=== PATIENT | female | born 1935 | race Caucasian/White ===

== ENCOUNTER 2017-10-23 19:21 | Inpatient (IN) | payer OTHER ==
[~2017-10-23] VITALS: Ht 160 cm; Wt 64.2 kg
[2017-10-23 21:17] LABS: BASOPHIL (%) 0.5 % (0-1); BASOPHIL COUNT 0.1 K/uL (0-0.1); EOSINOPHIL (%) 0.5 % (0-5); EOSINOPHIL COUNT 0.1 K/uL (0-0.3); HEMATOCRIT 36.9 % (36.0-46.0); HEMOGLOBIN 12.6 G/DL (11.9-15.5); IMMATURE GRANULOCYTE (%) 0.5 % (0.0-0.7); LYMPHOCYTE (%) 19.2 % (15-42); LYMPHOCYTE COUNT 1.8 K/uL (1.0-2.8); MCH 28.3 PG (29.0-34.0); MCHC 34.1 G/DL (30.0-36.0); MCV 82.7 FL (83-99); MONOCYTE (%) 9.2 % (3-12); MONOCYTE COUNT 0.9 K/uL (0-0.8); NEUTROPHIL (%) 70.1 % (45-76); NEUTROPHIL COUNT 6.6 K/uL (1.8-6.4); PLATELET COUNT 344 K/uL (156-360); RBC DIS.WIDTH-CV 13.3 % (11.8-14.6); RBC DIS.WIDTH-SD 40.2 % (39-53); RED BLOOD COUNT 4.46 M/uL (3.80-5.20); WHITE BLOOD COUNT 9.5 K/uL (4.1-10.2)
[2017-10-23 21:28] LABS: ALBUMIN 4.1 g/dL (3.2-4.8); CHLORIDE 97 mEq/L (99-109); MAGNESIUM 2.1 mg/dL (1.3-2.7); POTASSIUM 3.5 mEq/L (3.7-5.4); SODIUM 130 mEq/L (136-147)
[2017-10-23 21:30] LABS: GLUCOSE 128 mg/dL (70-99); TOTAL PROTEIN 6.9 g/dL (6.4-8.3)
[2017-10-23 21:32] LABS: TOTAL BILIRUBIN 0.5 mg/dL (0.0-1.0)
[2017-10-23 21:34] LABS: ALKALINE PHOSPHATASE 152 IU/L (3-129)
[2017-10-23 21:35] LABS: AST (GOT) 23 IU/L (2-34); GFR ESTIMATE (CALCULATED) 57 mL/min/
[2017-10-23 21:36] LABS: UREA NITROGEN (BUN) 9 mg/dL (9-23)
[2017-10-23 21:37] LABS: SALICYLATE < 5.0 MG/DL (15-30)
[2017-10-23 21:38] LABS: ACETAMINOPHEN (TYLENOL) < 10 mcg/mL (10-30); ALT (GPT) 14 IU/L (3-49); TROP-I INTERPRETATION NEGATIVE; TROPONIN-I < 0.01 ng/mL (0.0-0.30)
[2017-10-23 23:42] LABS: APPEARANCE SL.HAZY ((CLEAR)); BILIRUBIN NEGATIVE; BLOOD SMALL; COLOR YELLOW ((YELLOW)); GLUCOSE (STRIP) NEGATIVE; KETONES NEGATIVE; LEUKOCYTES MODERATE; NITRITE POSITIVE; PROTEIN (STRIP) NEGATIVE; SPECIFIC GRAVITY 1.008 (1.000-1.030)
[2017-10-23] MEDS ORDERED: RISPERDAL1 MG PO (23:44)
[2017-10-23] MEDS ORDERED: TRAZODONE HCL50 MG PO (23:45)
[2017-10-23] MEDS ORDERED: ZANTAC300 MG PO (23:49)
[2017-10-24 00:40] LABS: BACTERIA 1+ /HPF; EPITHELIAL CELLS RARE /HPF; MUCUS TRACE /LPF; RED BLOOD CELLS 0-5 /HPF (0-5); UCUL ADDED? YES; WHITE BLOOD CELLS 30-40 /HPF (0-5)
[2017-10-24 00:44] LABS: AMPHETAMINE NEGATIVE (500 ng/mL); BARBITURATES NEGATIVE (200 ng/mL); BENZODIAZEPINES NEGATIVE (150 ng/mL); BUPRENORPHINE NEGATIVE (10 ng/mL); COCAINE NEGATIVE (150 ng/mL); METHADONE NEGATIVE (200 ng/mL); METHAMPHETAMINE NEGATIVE (500 ng/mL); OPIATES (MORPHINE) NEGATIVE (100 ng/mL); OXYCODONE NEGATIVE (100 ng/mL); PHENCYCLIDINE NEGATIVE (25 ng/mL); PROPOXYPHENE NEGATIVE (300 ng/mL); THC CANNABINOIDS NEGATIVE (50 ng/mL); TRICYCLIC ANTIDEPRESSANTS NEGATIVE (300 ng/mL)
[2017-10-24 03:42] VITALS: BP 144/91
[2017-10-24 08:23] VITALS: BP 123/70
[2017-10-24 15:33] VITALS: BP 135/76
[2017-10-25 08:07] VITALS: BP 162/70
[2017-10-25 15:44] VITALS: BP 162/104
[2017-10-25 22:10] VITALS: BP 169/76
[2017-10-26 09:04] VITALS: BP 166/84
[2017-10-26 15:36] VITALS: BP 183/81
[2017-10-27 08:04] VITALS: BP 141/89
[2017-10-27 16:15] VITALS: BP 103/52
[2017-10-28 08:07] VITALS: BP 161/87
[2017-10-28 11:36] VITALS: BP 128/58
[2017-10-28 15:41] VITALS: BP 133/73
[2017-10-29 07:53] VITALS: BP 118/56
[2017-10-29 15:37] VITALS: BP 131/62
[2017-10-30 07:58] VITALS: BP 142/76
[2017-10-30] MEDS ORDERED: VENTOLIN HFA18 GM IH (09:28)
[2017-10-30] MEDS ORDERED: TRAZODONE HCL50 MG PO (09:28)
[2017-10-30] MEDS ORDERED: LISINOPRIL5 MG PO (09:28)
[2017-10-30] MEDS ORDERED: RISPERDAL1 MG PO (09:28)
== END 2017-10-30 15:16 | disposition home or self-care (01) | DRG 885 ==
LOC: EME 19:21 → 1WEST 23:47 → EDOF 23:47 → ENRESERV 10-24 02:54 → 1WEST 10-24 03:32
PROVIDERS: Emergency Medicine
DX: F25.9 Schizoaffective disorder, unspecified (principal); N39.0 Urinary tract infection, site not specified; R45.851 Suicidal ideations; F05 Delirium due to known physiological condition; F31.9 Bipolar disorder, unspecified; F02.80 Dementia in other diseases classified elsewhere, unspecified severity, without behavioral disturbance, psychotic disturbance, mood disturbance, and anxiety; K59.00 Constipation, unspecified; Z60.2 Problems related to living alone; L30.9 Dermatitis, unspecified; B96.20 Unspecified Escherichia coli [E. coli] as the cause of diseases classified elsewhere; G47.00 Insomnia, unspecified; J43.9 Emphysema, unspecified; F41.9 Anxiety disorder, unspecified; F22 Delusional disorders; I10 Essential (primary) hypertension; Z91.14 Patient's other noncompliance with medication regimen; Z87.891 Personal history of nicotine dependence; Z88.5 Allergy status to narcotic agent; Z79.51 Long term (current) use of inhaled steroids; Z91.5 Personal history of self-harm
CPT/HCPCS: 71045; 80053; 81003; 83735; 84484; 85025; 87077; 87086; 87186; 90837; 93005; 94640; 94640 76; 97150 GO; 99202; 99281; 99285; G0480

== ENCOUNTER 2017-12-13 10:43 | Emergency (ER) | payer OTHER ==
[~2017-12-13] VITALS: Ht 162.6 cm; Wt 59.4 kg
[~2017-12-13 10:43] MED LIST: LISINOPRIL5 MG PO; RISPERDAL1 MG PO; TRAZODONE HCL50 MG PO; VENTOLIN HFA18 GM IH; ZANTAC300 MG PO
[2017-12-13 10:49] VITALS: BP 139/80
== END 2017-12-13 11:50 | disposition left against medical advice (07) ==
LOC: EXP 10:43 → EME 10:43 → EXP 11:50
DX: M79.602 Pain in left arm (principal); M25.532 Pain in left wrist; Z53.21 Procedure and treatment not carried out due to patient leaving prior to being seen by health care provider
CPT/HCPCS: 73080; 73110

== ENCOUNTER 2018-01-07 17:00 | Emergency (ER) | payer OTHER ==
[~2018-01-07] VITALS: Ht 160 cm; Wt 63.0 kg
[2018-01-07 17:36] LABS: BASOPHIL (%) 0.9 % (0-1); BASOPHIL COUNT 0.1 K/uL (0-0.1); EOSINOPHIL (%) 2.4 % (0-5); EOSINOPHIL COUNT 0.2 K/uL (0-0.3); HEMATOCRIT 35.9 % (36.0-46.0); HEMOGLOBIN 11.8 G/DL (11.9-15.5); IMMATURE GRANULOCYTE (%) 0.5 % (0.0-0.7); LYMPHOCYTE (%) 29.7 % (15-42); LYMPHOCYTE COUNT 2.4 K/uL (1.0-2.8); MCHC 32.9 G/DL (30.0-36.0); MCV 85.3 FL (83-99); MONOCYTE (%) 9.6 % (3-12); MONOCYTE COUNT 0.8 K/uL (0-0.8); NEUTROPHIL (%) 56.9 % (45-76); NEUTROPHIL COUNT 4.5 K/uL (1.8-6.4); PLATELET COUNT 284 K/uL (156-360); RBC DIS.WIDTH-CV 13.7 % (11.8-14.6); RBC DIS.WIDTH-SD 42.6 % (39-53); RED BLOOD COUNT 4.21 M/uL (3.80-5.20)
[2018-01-07 17:50] LABS: ALBUMIN 3.5 g/dL (3.2-4.8); CHLORIDE 103 mEq/L (99-109); POTASSIUM 3.9 mEq/L (3.7-5.4); SODIUM 135 mEq/L (136-147)
[2018-01-07 17:52] LABS: GLUCOSE 97 mg/dL (70-99)
[2018-01-07 17:53] LABS: TOTAL PROTEIN 5.9 g/dL (6.4-8.3)
[2018-01-07 17:54] LABS: TOTAL BILIRUBIN 0.3 mg/dL (0.0-1.0)
[2018-01-07 17:56] LABS: ALKALINE PHOSPHATASE 133 IU/L (3-129); CREATININE 0.9 mg/dL (0.6-1.3); GFR ESTIMATE (CALCULATED) > 59 mL/min/
[2018-01-07 17:57] LABS: UREA NITROGEN (BUN) 9 mg/dL (9-23)
[2018-01-07 17:58] LABS: AST (GOT) 13 IU/L (2-34)
[2018-01-07 17:59] LABS: ALT (GPT) 10 IU/L (3-49); LIPASE 75 U/L (1.0-51.0)
[2018-01-07 19:50] VITALS: BP 155/62
== END 2018-01-07 19:50 | disposition left against medical advice (07) ==
LOC: EME 17:00
PROVIDERS: Emergency Medicine
DX: R11.2 Nausea with vomiting, unspecified (principal); I71.4 Abdominal aortic aneurysm, without rupture; F31.9 Bipolar disorder, unspecified; F20.9 Schizophrenia, unspecified; F32.9 Major depressive disorder, single episode, unspecified; F41.9 Anxiety disorder, unspecified; Z72.0 Tobacco use; Z90.49 Acquired absence of other specified parts of digestive tract; Z88.5 Allergy status to narcotic agent
CPT/HCPCS: 74177; 80053; 81003; 83690; 85025; 99281; 99285; J2405; J7120